=== PATIENT | male | born 1960 | race Caucasian/White ===

== ENCOUNTER 2019-02-03 11:06 | Emergency (ER) | payer OTHER, SELFPAY ==
[2019-02-03 11:07] VITALS: BP 128/88; PULSE 89; RESP 18; TEMP 36.6; O2SAT 99; BMI 27.8
--- NOTE | 2019-02-03 11:30 | ED.VISSUMM ---
- ER Visit Summary Date of Service: 02/03/19 Chief Complaint: [Back pain] History of Present Illness: The patient is a 58 M [presents the emergency department with back pain that started 2 days ago. Patient has history of chronic back pain issues and has been diagnosed with herniated disks at L4-5. His last MRI was about 3 years ago which time he was evaluated by 2 surgeons and was recommended surgery which she refused at that time. 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 Patient describes pain radiating down his left leg down to his foot. He denies any weakness in extremities. He denies any change in bowel or bladder function. He denies saddle anesthesia. Patient drove himself to the emergency department. He rates his pain a 10 out of 10. Patient's been taking gabapentin without much pain relief.] He denies urinary symptoms such as dysuria, hematuria, urgency, or frequency. Said no fevers. He denies illicit drug use. Physical Examination: [HEENT-PERRLA, EOMI. Cranial nerves II through XII grossly intact. TMs clear. Mucous membranes moist. No adenopathy. Cardiovascular-regular rate and rhythm without murmur or ectopy Lungs-clear to auscultation, chest wall stable without crepitus or subcu emphysema Abdomen-normoactive bowel sounds, soft, nontender, no rebound or rigidity, no peritoneal signs. Back exam-patient has no tenderness over the thoracic or lumbar spine. No real tenderness over the paraspinal musculature. Patient has positive straight leg raises bilaterally with pain at about 30 degrees while sitting. Deep tendon reflexes are plus 2 out of 4 bilaterally at the patella and Achilles. Patient has normal L5 extension bilaterally. Patient has normal sensation to light touch bilaterally. Extremities-intact ?4, normal range of motion, normal pulses, atraumatic] Test Results: [None indicated. Patient has no signs of cauda equina.] Emergency Department Course and Treatment: [Pain that patient is driving and cannot find any type of ride home he declined medications in the emergency department.] Treatment Plan: [She will be given a prescription for Flexeril, Naprosyn, and Clark. Patient advised to follow-up with primary care physician within next 3 to 5 days. Patient advised to return if worsening pain, weakness extremities, change in bowel bladder function, or condition should worsen anyway.] Disposition: [Home in stable condition.] Impression: [Lumbar radiculopathy] This note was generated with [employer] dictation software. It may contain incorrect words, spelling, and punctuation that were not noted in review of the chart prior to signing ED Disposition - Plan for ED Patient: Referrals: [facility] Doctor,Out of [Primary Care Provider] -
--- NOTE | 2019-02-03 11:33 | ED.DEP ---
ED Disposition - Plan for ED Patient: Instructions: BACK PAIN w/ SCIATICA Prescriptions: cycloBENZAPRine HCl [Flexeril] 10 mg PO TID PRN #20 tab PRN Reason: Muscle Spasm Prescription Printed Naproxen [Naprosyn] 500 mg PO BID PRN #20 tab Prescription Printed Hydrocodone Bitart/Apap 5-325 [Bondurant 5MG-325MG] 1 tab PO Q4H PRN PRN 2 Days #20 tab PRN Reason: Pain Prescription Printed Referrals: [facility] Doctor,Out of [Primary Care Provider] - 3-5 Days
== END 2019-02-03 12:07 | disposition home or self-care (01) ==
PROVIDERS: Emergency Provider Emergency Medicine; Family Provider Internal Medicine; PCP Internal Medicine
DX: M51.16 Intervertebral disc disorders with radiculopathy, lumbar region (principal)
CPT/HCPCS: 99282